=== PATIENT | female | born 1995 | race Caucasian/White ===

== ENCOUNTER 2022-02-08 11:24 | Outpatient (CLI) | payer BC, SELFPAY | END 2022-02-08 11:25 | disposition home or self-care (01) | PROVIDERS: PCP Family Medicine; Visit Provider Registered Nurse | DX: Z01.419 Encounter for gynecological examination (general) (routine) without abnormal findings; R87.810 Cervical high risk human papillomavirus (HPV) DNA test positive; R45.86 Emotional lability; F41.9 Anxiety disorder, unspecified; Z87.42 Personal history of other diseases of the female genital tract | CPT/HCPCS: 87624; 88174 ==

== ENCOUNTER 2022-02-19 09:08 | Outpatient (CLI) | payer BC, SELFPAY ==
[2022-02-19 12:59] LABS: Cholesterol* 202 mg/dL (90-199); HDL Cholesterol* 94 mg/dL (>=50); LDL Cholesterol Calculated 96 mg/dL (<100); Triglycerides* 60 mg/dL (40-149)
[2022-02-19 13:17] LABS: Vitamin D 25 Hydroxy* 37 ng/mL (30-80)
== END 2022-02-19 09:09 | disposition home or self-care (01) ==
LOC: NFLDREF 09:09
PROVIDERS: PCP Family Medicine; Visit Provider Registered Nurse
DX: R45.86 Emotional lability (principal); Z13.6 Encounter for screening for cardiovascular disorders; Z13.29 Encounter for screening for other suspected endocrine disorder
CPT/HCPCS: 80061; 82306; 84443

== ENCOUNTER 2023-02-11 17:03 | Outpatient (CLI) | payer BC, SELFPAY | END 2023-02-11 17:04 | disposition home or self-care (01) | LOC: NFLDREF 17:04 | PROVIDERS: PCP Family Medicine; Visit Provider Registered Nurse | DX: Z01.419 Encounter for gynecological examination (general) (routine) without abnormal findings (principal); Z13.1 Encounter for screening for diabetes mellitus | CPT/HCPCS: 82947 ==

== ENCOUNTER 2024-05-25 12:58 | Outpatient (CLI) | payer OTHER, SELFPAY ==
--- NOTE | 2024-05-25 13:00 | CRLHL7_ITS ---
For Patients: As a result of the Century Cures Act, medical imaging exams and procedure reports are released immediately into your electronic medical record. You may view this report before your referring provider. If you have questions, please contact your health care provider. INDICATION: First trimester scan, establish dates. COMPARISON: None. TECHNIQUE: Real-time rodriguez-scale imaging of the pelvis was performed. FINDINGS: Sonographic imaging demonstrates a single living intrauterine gestation. The embryo demonstrates a regular cardiac rate measuring 161 beats per minute. The embryo`s crown-rump length measurement of 1.4 cm corresponds to a gestational age of 7 weeks 4 days with a sonographic due date of 01/07/2025. There is a normal-appearing yolk sac. There are no gross abnormalities noted within the embryo at this early state of development. The gestational sac has a normal appearance. There is no evidence of a perigestational hemorrhage. The amount of fluid within the sac appears appropriate for gestational age. The cervix is closed. The myometrium appears normal. The ovaries are of normal size. Corpus luteal cyst right ovary. There are no suspicious fluid collections noted in the cul-de-sac. IMPRESSION: Single living intrauterine with sonographic gestational age 7 weeks 4 days and sonographic due date of 01/07/2025. Dictated by Mayank Kessler MD @ 05/26/2024 12:22:28 PM (Electronically Signed)
== END 2024-05-25 12:59 | disposition home or self-care (01) ==
LOC: US 12:59
PROVIDERS: PCP Family Medicine; Visit Provider Advanced Practice Midwife
DX: Z34.91 Encounter for supervision of normal pregnancy, unspecified, first trimester (principal); Z3A.01 Less than 8 weeks gestation of pregnancy
CPT/HCPCS: 76817

== ENCOUNTER 2024-05-25 14:34 | Outpatient (CLI) | payer OTHER, SELFPAY | END 2024-05-25 14:35 | disposition home or self-care (01) | PROVIDERS: PCP Family Medicine; Visit Provider Advanced Practice Midwife | DX: Z34.91 Encounter for supervision of normal pregnancy, unspecified, first trimester (principal); Z3A.08 8 weeks gestation of pregnancy | CPT/HCPCS: 83021; 86592; 86703; 86704; 86706; 86762; 86787; 86803; 86850; 86900; 86901; 87086; 87340 ==

== ENCOUNTER 2024-07-20 10:50 | Outpatient (CLI) | payer OTHER, SELFPAY | END 2024-07-20 10:51 | disposition home or self-care (01) | LOC: NFLDREF 07-21 00:52 | PROVIDERS: PCP Family Medicine; Referring Provider Family Medicine; Visit Provider Midwife | DX: Z34.02 Encounter for supervision of normal first pregnancy, second trimester (principal); F12.91 Cannabis use, unspecified, in remission | CPT/HCPCS: 80306 ==

== ENCOUNTER 2024-08-19 12:47 | Outpatient (CLI) | payer OTHER, SELFPAY | END 2024-08-19 12:48 | disposition home or self-care (01) | LOC: US 12:47 | PROVIDERS: PCP Family Medicine; Visit Provider Midwife | DX: Z34.92 Encounter for supervision of normal pregnancy, unspecified, second trimester (principal); Z3A.20 20 weeks gestation of pregnancy | CPT/HCPCS: 76805; 76817 ==

== ENCOUNTER 2024-09-03 08:21 | Outpatient (CLI) | payer OTHER, SELFPAY | END 2024-09-03 08:22 | disposition home or self-care (01) | LOC: US 08:21 | PROVIDERS: PCP Family Medicine; Visit Provider Midwife | DX: Z34.92 Encounter for supervision of normal pregnancy, unspecified, second trimester (principal); Z3A.22 22 weeks gestation of pregnancy | CPT/HCPCS: 76816 ==

== ENCOUNTER 2024-10-14 11:37 | Outpatient (CLI) | payer OTHER, SELFPAY | END 2024-10-14 11:38 | disposition home or self-care (01) | LOC: NFLDREF 11:39 | PROVIDERS: PCP Family Medicine; Visit Provider Midwife | DX: Z34.03 Encounter for supervision of normal first pregnancy, third trimester (principal); Z67.21 Type B blood, Rh negative | CPT/HCPCS: 86592; 86850; J2791 ==

== ENCOUNTER 2024-11-21 22:16 | Outpatient (CLI) | payer OTHER, SELFPAY ==
[2024-11-21 22:27] VITALS: BP 131/90; PULSE 81
[2024-11-21 22:49] VITALS: BP 133/88; PULSE 80
[2024-11-21] MEDS: ACETAMINOPHEN 500 MG TABLET 1000 MG PO (22:54)
[2024-11-21 22:58] LABS: Hematocrit 36.5 % (33.0-51.0); Hemoglobin* 12.6 gm/dL (12.0-16.0); Mean Corpuscular HGB Conc 35 gm/dL (32-36); Mean Corpuscular Hemoglobin 31 pg (26-34); Mean Corpuscular Volume 89 fL (80-100); Platelet Count* 222 K/uL (140-440); White Blood Count* 12.41 K/uL (4.50-11.00)
[2024-11-21 23:02] LABS: Slide Review Reflex No
[2024-11-21 23:10] VITALS: BP 139/96; PULSE 110
[2024-11-21 23:15] LABS: Alanine Aminotransferase* 14 U/L (4-35); Aspartate Amino Transferase* 26 U/L (12-35); Blood Urea Nitrogen* 21 mg/dL (5-24); Creatinine* 0.8 mg/dL (0.5-1.5); Estimated Glomerular Filt Rate 102 ml/min
[2024-11-21 23:25] VITALS: BP 131/96; PULSE 80
[2024-11-21 23:35] LABS: Total Protein Urine 55 mg/dL
[2024-11-21 23:36] LABS: Creatinine Urine 79.5 mg/dL; Protein Creatinine Ratio Urine 0.69 (0-0.19)
[2024-11-21 23:42] VITALS: BP 134/95; PULSE 82
[2024-11-21 23:55] VITALS: BP 133/95; PULSE 81
[2024-11-22] VITALS (7 sets, daily range): BP systolic 120–138; BP diastolic 74–88; PULSE 81–100
--- NOTE | 2024-11-24 18:10 | PC.OBNST ---
NST Note NST Note Start: 11/21/24 22:34 Freq: ONCE Status: Discharge Protocol: Document 11/22/24 02:15 MARQUISE (Rec: 11/22/24 03:55 MARQUISE [id number]) NST Note 1 Para (# of births) 0 EDC 01/04/25 Gestational Age In 33 Weeks & 6 Days Weeks & Days High Risk Factors High Blood Pressure - Gestational Patient Presented Other with Complaint(s) of Other Complaints Elevated blood pressure, bilateral lower extremity edema, visual disturbance and headache. Reactive Yes RAAD Dyson, RN Date 11/22/24 Reactive Yes RAAD Ni RN Date 11/22/24 OB NST charge Yes Complete NST Note Yes via Write Note The provider's electronic signature indicates the NST is reactive/appropriate for gestational age. *Note to provider: If an addendum is required, open the patient's chart and click on the note under the Nurse/Allied Health tab.
== END 2024-11-22 02:13 | disposition home or self-care (01) ==
LOC: OB OUT 22:16 → OB 22:17
PROVIDERS: PCP Family Medicine; Visit Provider Midwife
DX: O13.3 Gestational [pregnancy-induced] hypertension without significant proteinuria, third trimester (principal); Z3A.33 33 weeks gestation of pregnancy
CPT/HCPCS: 36415; 59025; 82565; 82570; 84156; 84450; 84460; 84520; 85027; G0463; A9270

== ENCOUNTER 2024-11-28 23:40 | Outpatient (CLI) | payer OTHER, SELFPAY ==
[2024-11-29] VITALS (30 sets, daily range): BP systolic 117–189; BP diastolic 71–117; PULSE 67–96; TEMP 36.5; O2SAT 97–100
[2024-11-29] MEDS: LABETALOL HCL 5 MG/ML inj IVP ×2 (00:41→00:58)
[2024-11-29 00:43] LABS: Hematocrit 36.8 % (33.0-51.0); Hemoglobin* 12.5 gm/dL (12.0-16.0); Mean Corpuscular HGB Conc 34 gm/dL (32-36); Mean Corpuscular Hemoglobin 30 pg (26-34); Mean Corpuscular Volume 89 fL (80-100); Platelet Count* 214 K/uL (140-440); Red Blood Count 4.12 m/uL (4.00-5.20)
[2024-11-29 00:44] LABS: Slide Review Reflex No
--- NOTE | 2024-11-29 00:51 | P.OBLDTN_ITS ---
OB - Triage/Final Diagnosis Visit Information Narrative: Adelina is a 29 yo at 34.6 weeks gestation with an SONJA of 01/04/2025, dated by certain LMP, presenting to OB triage for elevated BP at home. She reports she was feeling a little unwell so her mother told her to check her blood pressure. At home it was was 139/90's. She called and was recommended to come in for evaluation. On admission her first blood pressure was 171/97. On repeat it remained elevated at 169/102. CNM was notified. Pre-eclampsia labs were drawn and are pending at this time. She reports she has had a mild headache on and off since when she was seen on 11/25 but took Tylenol prior to arrival and it was has mostly resolved. She was seen in triage on 11/25 and noted to have mildly elevated BP. They were not more than 4 hours apart but labs were drawn and WNL except p/c ratio of 0.69. She was planning to complete a 24 hour urine protein tomorrow, per patient. She denies any epigastric pain, nausea and vomiting, or blurred vision at this time. On the monitor, patient is having regular contractions however patient denies feeling any of them and felt it was just baby moving a lot. Patient was treated with IV Labetalol 20 mg and then again with IV Labetalol 40 mg. OB PROBLEM LIST # ADHD ? not currently on meds, previously on Vyvanse did not feel this was helpful #? Anxiety and depression restarted on Zoloft at NOB, GLADYS 14, PHQ 13, improving mood 06/21 sees therapist weekly #? Hx of THC use quit 3 months prior to UDS 07/20/24--negative. No further needed. ?#Rh negative recommend Rhogam 28 weeks- given 10/14/24 [place] screening--Rh detected. # Elevated BP x1 in triage with P/C ratio 0.69. 24hr Urin ordered 11/25. Anatomy US Imaging:??? Anatomy US: 08/19/2024- Suri US: insufficient views, but other normal findings. anterior placenta. F/U 1-2w ordered. Follow-up US: 09/03/24-1. Concordant of clinical and sonographic dating. 2. Estimated weight 53rd percentile. Abdominal circumference 69th percentile. 3. Normal profile, arms, hands, LVOT, 3-vessel view, and 3-vessel tracheal view. Reason for evaluation: other (Elevated BP at home) Evaluation Laboratory results: WBC 12.20 K/uL (4.50-11.00) H 11/29/24 00:35 RBC 4.12 m/uL (4.00-5.20) 11/29/24 00:35 Hgb 12.5 gm/dL (12.0-16.0) 11/29/24 00:35 Hct 36.8 % (33.0-51.0) 11/29/24 00:35 MCV 89 fL (80-100) 11/29/24 00:35 MCH 30 pg (26-34) 11/29/24 00:35 MCHC 34 gm/dL (32-36) 11/29/24 00:35 Plt Count 214 K/uL (140-440) 11/29/24 00:35 BUN 13 mg/dL (5-24) 11/29/24 00:35 Creatinine 0.8 mg/dL (0.5-1.5) 11/29/24 00:35 Estimated GFR 102 ml/min 11/29/24 00:35 AST 27 U/L (12-35) 11/29/24 00:35 ALT 15 U/L (4-35) 11/29/24 00:35 Vital signs: Vital Signs Temp Pulse BP Pulse Ox 11/29/24 01:32 85 117/71 11/29/24 01:31 99 11/29/24 01:26 97 11/29/24 01:24 85 128/85 11/29/24 01:23 83 131/84 11/29/24 01:21 99 11/29/24 01:16 98 11/29/24 01:13 80 11/29/24 01:13 155/91 H 11/29/24 01:13 82 147/95 H 11/29/24 01:11 98 11/29/24 01:06 99 11/29/24 01:03 82 141/87 H 11/29/24 01:01 100 11/29/24 00:56 100 11/29/24 00:53 84 160/96 H 11/29/24 00:51 100 11/29/24 00:46 100 11/29/24 00:41 100 11/29/24 00:37 79 189/117 H 11/29/24 00:36 100 11/29/24 00:31 100 11/29/24 00:26 100 11/29/24 00:22 67 169/102 H 11/29/24 00:21 100 11/29/24 00:16 99 11/29/24 00:12 97.7 F 11/29/24 00:11 99 11/29/24 00:06 77 171/97 H 98 Intake and Output 11/28/24 11/28/24 11/29/24 15:59 23:59 07:59 Other: Weight 181 lb 1.6 oz Patient Weight 11/29/24 23:59 Weight 181 lb 1.6 oz Comments: Vitals Reviewed Constitutional:? Alert and oriented x3 HEENT:? Normocephalic, atraumatic Neck:? Supple Lungs:? Clear to auscultation bilaterally Heart:? Regular rate and rhythm, no murmur, rub or gallop Abdomen:? Soft, nontender, and gravid. Vertex by Arpan's, confirmed with bedside US. Extremities:? No edema or erythema Cervix: 1 cm/30%/-3 station/vertex per RN, GBS collected NST: 120 bpm/moderate variability/15x15 accelerations/no decelerations/contractions every 2-4 minutes palpating mild Fetus (Single) Heart Rate Baseline: 120 Total Time Spent Total Time Spent: ASSESSMENT:? 29 yo at 34.6 weeks gestation? complicated by:?ADHD, Anxiety/Depression, Hx of THC abuse prior to , Rh neg Pre-eclampsia with Severe Features based on Severe Range BP Category 1 FHR pattern.?? GBS pending? ? PLAN:? 1. Routine intrapartum cares as ordered. Continue with expectant management? 2. Monitoring per policy, continuous ? 3. Dr. Aguayo consulted via phone and aware. Instructed to treat BP, start magnesium, consult for transfer, order pre-e labs and give BMZ per accepting provider recommendation. 4. Labs ordered and WNL, p/c ratio pending at this time. GBS collected prior to transfer. 5. Pt desires transfer to [facility] due to location. Accepting provider for transfer, Dr. Landin. Stable to transfer via ground. 6. IV Magnesium started. BMZ given. GBS collected. Labetalol x 2 doses (20 mg and 40 mg). 7. Transfer to higher level of care for Severe Pre-e and for NICU due to .
[2024-11-29 00:58] LABS: Alanine Aminotransferase* 15 U/L (4-35); Aspartate Amino Transferase* 27 U/L (12-35); Blood Urea Nitrogen* 13 mg/dL (5-24); Creatinine* 0.8 mg/dL (0.5-1.5); Estimated Glomerular Filt Rate 102 ml/min
[2024-11-29] MEDS: MAGNESIUM IV 4 GM/100 ML PIGGYBACK IVPB (01:01)
[2024-11-29] MEDS: LACTATED RINGERS 1000 ML 1,000 ML 75 ML IV (01:02)
[2024-11-29] MEDS: BETAMETHASONE SOD PHOS/ACETATE 6 MG/ML ML 12 MG IM (01:22)
[2024-11-29 01:23] LABS: Total Protein Urine 54 mg/dL
[2024-11-29 01:34] LABS: Creatinine Urine 38.6 mg/dL
[2024-11-29] MEDS: MAGNESIUM Infusion 40 GM/1,000 ML IV.SOLN IVPB (01:36)
--- NOTE | 2024-11-29 03:06 | PC.OBNST ---
NST Note NST Note Start: 11/28/24 23:43 Freq: ONCE Status: Active Protocol: Document 11/29/24 03:03 JOHNNIE (Rec: 11/29/24 03:05 JOHNNIE Harkins) NST Note 1 Para (# of births) 0 EDC 01/04/25 Gestational Age In 34 Weeks & 6 Days Weeks & Days High Risk Factors High Blood Pressure - Gestational Other Complaints Patient came in after having mild range BP's at home. Two severe range BP's upon arrival. Patient treated with Labetalol and Magnesium drip and transferred to higher level of care. Reactive Yes Appropriate for Yes Gestational Age RAAD Roman RN Date 11/29/24 Reactive Yes Appropriate for Yes Gestational Age RAAD Nuñez CNM Date 11/29/24 OB NST charge Yes Complete NST Note Yes via Write Note The provider's electronic signature indicates the NST is reactive/appropriate for gestational age. *Note to provider: If an addendum is required, open the patient's chart and click on the note under the Nurse/Allied Health tab.
[2024-11-29 21:53] LABS: Strep B DNA Probe Negative (Negative)
[2024-11-29 21:59] LABS: Strep B Susceptibility Needed? No
== END 2024-11-29 01:59 | disposition home or self-care (01) ==
LOC: OB OUT 23:40 → OB 23:40
PROVIDERS: PCP Family Medicine; Visit Provider Advanced Practice Midwife
DX: O13.3 Gestational [pregnancy-induced] hypertension without significant proteinuria, third trimester (principal); Z3A.34 34 weeks gestation of pregnancy
CPT/HCPCS: 36415; 59025; 76815; 82565; 82570; 84156; 84450; 84460; 84520; 85027; 87081; 87653; G0463; J0702; J3475; J7120

== ENCOUNTER 2024-11-29 01:38 | Outpatient (CLI) | payer OTHER, SELFPAY | END 2024-11-29 01:40 | disposition home or self-care (01) | LOC: AMB 12-06 13:28 | PROVIDERS: PCP Family Medicine; Visit Provider Family Medicine | DX: O14.90 Unspecified pre-eclampsia, unspecified trimester (principal) | CPT/HCPCS: A0425; A0434 ==